=== PATIENT | male | born 1995 | race Caucasian/White ===

== ENCOUNTER 2024-01-01 20:15 | Emergency (ER) | payer OTHER, SELFPAY ==
[2024-01-01 20:24] VITALS: BP 119/77
[2024-01-01 21:12] LABS: COVID-19 Antigen Negative (Negative)
--- NOTE | 2024-01-01 23:34 | ED.GENMED ---
History of Present Illness
<Chandler García Haris, DO - Last Filed: 01/01/24 23:41>
General
Chief Complaint: Cough
Time Seen by Provider: 01/01/24 22:57
<Shantel Wu MD, Resident - Last Filed: 01/01/24 23:42>
General
Source: patient
Exam Limitations: none
History of Present Illness
History of Present Illness:
Patient is a 28-year-old male without significant past medical history who presents with sore throat, body ache and cough starting yesterday. Also has chest pain whenever he coughs. He mentions that his daughter and roommates daughter had similar
symptoms and were recently diagnosed with mycoplasma following a throat swab at [facility]. Denies fever/chills. No nausea/vomiting. mentions he was having some abdominal pain yesterday but patient denies having any abdominal pain. Denies diarrhea.
Past History
<Shantel Wu MD, Resident - Last Filed: 01/01/24 23:42>
Past History
ED Past Medical History: None
Social History
Tobacco: Non-smoker
Drug: None
Living: with family
Review of Systems
<Shantel Wu MD, Resident - Last Filed: 01/01/24 23:42>
Review of Systems
Allergies reviewed?: Yes
All Other Systems: ROS reviewed and negative except as documented in HPI and ROS
Phy Exam
<Shantel Wu MD, Resident - Last Filed: 01/01/24 23:42>
Physical Exam
Physical Exam:
Patient is alert and oriented
ENT Exam
ENT Exam: TM's normal, pharynx normal and neck supple
Cardiovascular Exam
Cardiovascular Exam: regular rate/rhythm, no edema, no gallop, no JVD and no murmur
Pulmonary Exam
Pulmonary Exam: lungs clear, no rales, no crackles and no wheezing
Oxygen Status: room air
Cough: non productive cough
Musculoskeletal Exam
Musculoskeletal Exam: full ROM and no edema
Course
<Chandler Carballo DO - Last Filed: 01/01/24 23:41>
Orders/Labs/Results
Orders:
Orders
01/01/24 20:28
Electrocardiogram (*1) Urgent
Reason for Study: Chest Pain
01/01/24 20:29
EKG- Treatment ONCE
CR Chest - 2 Views Urgent
Comment:
Reason For Exam: cough, chest pain, sob
01/01/24 20:51
COVID-19 Antigen Urgent
Source: Nasal Swab
Influenza A+B Rapid Molecular Urgent
MARIAJOSE Source: Nasal Swab
Specimen Description:
01/01/24 23:26
Azithromycin [Zithromax] 500 mg PO NOW STA
Vital Signs
Initial and Last Documented VS:
Initial Vital Signs
Temp Pulse Resp BP Pulse Ox
98.9 F 85 18 119/77 98
01/01/24 20:24 01/01/24 20:24 01/01/24 20:24 01/01/24 20:24 01/01/24 20:24
Last Documented Vital Signs
Temp Pulse Resp BP Pulse Ox
98.9 F 85 18 119/77 98
01/01/24 20:24 01/01/24 20:24 01/01/24 20:24 01/01/24 20:24 01/01/24 20:24
<Shantel Wu MD, Resident - Last Filed: 01/01/24 23:42>
Orders/Labs/Results
Orders:
Orders
01/01/24 20:28
Electrocardiogram (*1) Urgent
Reason for Study: Chest Pain
01/01/24 20:29
EKG- Treatment ONCE
CR Chest - 2 Views Urgent
Comment:
Reason For Exam: cough, chest pain, sob
01/01/24 20:51
COVID-19 Antigen Urgent
Source: Nasal Swab
Influenza A+B Rapid Molecular Urgent
MARIAJOSE Source: Nasal Swab
Specimen Description:
01/01/24 23:26
Azithromycin [Zithromax] 500 mg PO NOW STA
Vital Signs
Initial and Last Documented VS:
Initial Vital Signs
Temp Pulse Resp BP Pulse Ox
98.9 F 85 18 119/77 98
01/01/24 20:24 01/01/24 20:24 01/01/24 20:24 01/01/24 20:24 01/01/24 20:24
Last Documented Vital Signs
Temp Pulse Resp BP Pulse Ox
98.9 F 85 18 119/77 98
01/01/24 20:24 01/01/24 20:24 01/01/24 20:24 01/01/24 20:24 01/01/24 20:24
<Shantel Wu MD, Resident - Last Filed: 01/01/24 23:42>
*Critical Care Note
Total Time (30-74mins, 75-104mins- exclusive of procedures): 30
ED Attending Note
<Chandler Carballo DO - Last Filed: 01/01/24 23:41>
ED Attending Note
Patient seen and examined by attending physician: Yes
I performed the substantive portion of visit, reviewed & personally made and approve the management plan that is documented in note by myself or VASILE.: Yes
I performed a history and physical exam of patient and discussed management with resident, I reviewed resident's note and agree with documented findings and plan of care.: Yes
ED Attending Note:
I evaluated the patient at bedside. As patient reports contact with patients treated for mycoplasma, will place on azithromycin. The patient is well-appearing with unremarkable chest x-ray.
<Shantel Wu MD, Resident - Last Filed: 01/01/24 23:42>
-
Portions of this chart may have been created with voice recognition software.� Occasional wrong word or��sound alike� substitutions may have occurred due to the inherent limitations of voice recognition software.
Discharge Plan
Departure
Patient Disposition: Home (Routine Discharge)
Date of Disposition: 01/01/24
Time of Disposition: 23:29
Patient with high blood pressure during this ER visit?: No
Condition: Fair
Covid-19: Negative COVID-19
Discharge Problem:
Upper respiratory infection
Instructions: Pneumonia, Adult (DC)
Prescriptions:
New
azithromycin 250 mg tablet
250 mg PO DAILY 4 Days Qty: 4 0RF
Interventions
Interventions:
*Risk Screen - Suicide Last Done: 01/01/24 20:24
*General Assessment Last Done: 01/01/24 20:24
*Neglect/Abuse Screening Last Done: 01/01/24 20:24
Discharge Date and Time
Print Language: MONGOLIAN
[2024-01-01] MEDS: ZITHROMAX 500 MG PO (23:56)
[2024-01-01 23:58] VITALS: BP 121/70
== END 2024-01-02 00:02 | disposition home or self-care (01) ==
LOC: EMR 20:15
PROVIDERS: Emergency Medicine; EMERGENCY PHYSICIAN Emergency Medicine; FAMILY PHYSICIAN Internal Medicine
DX: J06.9 Acute upper respiratory infection, unspecified (principal); R07.9 Chest pain, unspecified; Z11.52 Encounter for screening for COVID-19
CPT/HCPCS: 99283; 71046; 87502; 87811; 93005